=== PATIENT | male | born 1980 | race Asian ===

== ENCOUNTER 2018-02-19 23:36 | Emergency (ER) | payer BC ==
[2018-02-20] MEDS ORDERED: methylPREDNISolone SOD SUCC 125 MG/2 ML VIAL IVP ONE
[2018-02-20] MEDS ORDERED: diphenhydrAMINE 25 MG CAP PO ONE (00:01)
[2018-02-20] MEDS ORDERED: FAMOTIDINE 20 MG/2 ML SDV IVP ONE (00:01)
--- NOTE | 2018-02-20 00:04 | EDPHY ---
H & P Time Seen by Provider: 02/19/18 23:40 HPI/ROS: CC: rash x 24 hours HPI: This 37-year-old male with past medical history of pre-hypertension presents to the emergency department tonight with a pruritic rash that started last night. He states he had an upper respiratory infection consisting of a runny nose for about a week starting last Monday. Then on Monday while he was in the middle of a strenuous workout he developed chills and a fever. He took NyQuil that night and on Monday he took ibuprofen in the morning and the evening and again Monday morning. The rash started Monday on his trunk and then began on his extremities. He also has a few spots on his face and the top of his head. He denies dizziness or lightheadedness, ear pain, sore throat, chest pain, shortness of breath, nausea, vomiting, abdominal pain, or dysuria. He had a few loose stools on Monday but attributes that to food he ate at an restaurant. He has taken ibuprofen in the past without problems. He tried putting coconut oil and camphor on the rash but experienced no relief. He has not been around anyone that has been ill, he has had no recent travel, no new medications, and no new detergents or soaps that he can think of. REVIEW OF SYSTEMS: Constitutional: See HPI. Eyes: No discharge. ENT: No sore throat. Respiratory: No cough, no shortness of breath. Cardiac: No chest pain, no palpitations. Gastrointestinal: No abdominal pain, no vomiting. Genitourinary: No hematuria. Musculoskeletal: No back pain. Skin: See HPI. Neurological: No headache. Past Medical/Surgical History: PMH: "Pre-hypertension" PSH: Denied FH: Daughter has asthma and eczema NKDA Meds: Denied Last 2013 NO PCP Social History: No tobacco products, no ETOH, no marijuana with children Smoking Status: Never smoked Physical Exam: General Appearance: Alert, no distress. Eyes: Pupils equal and round no pallor or injection. No discharge. ENT, Mouth: TMs clear bilaterally. Mucous membranes are moist. No erythema, exudate or petechiae. No intra-oral lesions or swelling. Uvula midline. Respiratory: There are no retractions, lungs are clear to auscultation. Cardiovascular: Regular rate and rhythm. No murmurs, gallops, or rubs. Gastrointestinal: Abdomen is soft and nontender, no masses, bowel sounds normal. Neurological: Awake and alert, sensory and motor exams grossly normal. Skin: Warm and dry. Urticarial rash diffusely on trunk and extremities. Musculoskeletal: Neck is supple nontender. No JVD. Extremities are symmetrical, full range of motion. Psychiatric: Patient is oriented X 3, there is no agitation. DIFFERENTIAL DIAGNOSIS: After history and physical exam differential diagnosis was considered for but not limited to: viral exanthem, urticaria, medication reaction, dermatitis. No evidence for Varicella-Zoster, Herpes Zoster, meningococcemia. Constitutional: Initial Vital Signs Temperature (C) 97.5 F 02/19/18 23:49 Heart Rate 70 02/19/18 23:49 Respiratory Rate 16 02/19/18 23:49 Blood Pressure 142/96 H 02/19/18 23:49 O2 Sat (%) 96 02/19/18 23:49 O2 Delivery Mode Room Air Allergies/Adverse Reactions: No Known Allergies Allergy (Unverified 02/19/18 23:49) Home Medications: Medication Instructions Recorded Cetirizine HCl [Zyrtec] 10 mg PO DAILY 7 Days #7 tablet 02/20/18 Famotidine [Pepcid] 20 mg PO BID 7 Days #14 tablet 02/20/18 predniSONE 20 mg PO BID #14 tablet 02/20/18 Medical Decision Making ED Course/Re-evaluation: The patient was seen and examined. Vital signs were reviewed and was significant for a blood pressure of 147/96 mm of mercury. The patient was counseled that this is stage I hypertension and he should follow up with a primary care provider. The patient understood. The IV was placed and patient was given Solu-Medrol 125 mg IV push and Pepcid 20 mg IV push. He was given 2 tablets of diphenhydramine 25 mg. He may take 1 or 2 of these when he gets home this evening as he drove himself to the ER. He was given a prescription for prednisone 20 mg twice a day for 7 days, Pepcid 20 mg twice a day for 7 days, and Zyrtec 10 mg daily should the Benadryl make him too sleepy to work. He was advised that antihistamines can sometimes cause urinary retention. He should follow up with the primary care provider if his rash persists or consider an house wirer consultation. He should return to the emergency room if symptoms worsen as discussed. - Data Points Medications Given: Discontinued Medications Diphenhydramine HCl (Benadryl) 50 mg PO EDNOW ONE Stop: 02/20/18 00:02 Last Admin: 02/20/18 00:18 Dose: 50 mg Famotidine (Pepcid) 20 mg IVP EDNOW ONE Stop: 02/20/18 00:02 Last Admin: 02/20/18 00:13 Dose: 20 mg Famotidine (Pepcid) 20 mg PO EDNOW ONE Stop: 02/20/18 00:43 Last Admin: 02/20/18 00:47 Dose: 20 mg Methylprednisolone Sodium Succinate (Solu-Medrol) 125 mg IVP EDNOW ONE Stop: 02/20/18 00:01 Last Admin: 02/20/18 00:12 Dose: 125 mg Prednisone (Prednisone) 40 mg PO EDNOW ONE Stop: 02/20/18 00:43 Last Admin: 02/20/18 00:47 Dose: 40 mg Departure - Departure Disposition: Home, Routine, Self-Care Clinical Impression: Urticaria Condition: Good Instructions: Famotidine (By mouth), Prednisone (By mouth), Diphenhydramine ( By mouth), Urticaria (ED), Acute Rash (ED) Additional Instructions: Take the Prednisone and Pepcid as directed. You may either take Benadryl ( diphenhydramine) 25mg every 4 - 6 hours for the itching but if it makes you too drowsy, you may substitue Zyrtec (Cetirizine) 10 mg once a day. You need to follow up with a primary care provider for your blood pressure. Follow up with a primary care provider or house wirer if rash persists. Return to the ER if symptoms worsen as discussed in your discharge instructions. Referrals: Cailin Cortes MD [Medical Doctor] - As per Instructions Prescriptions: Cetirizine HCl [Zyrtec] 10 mg PO DAILY 7 Days #7 tablet Famotidine [Pepcid] 20 mg PO BID 7 Days #14 tablet predniSONE 20 mg PO BID #14 tablet
[2018-02-20] MEDS ORDERED: FAMOTIDINE 20 MG TAB ONE (00:33)
[2018-02-20] MEDS ORDERED: predniSONE 20 MG TAB ONE (00:33)
[2018-02-20 00:41] VITALS: BP 127/97
[2018-02-20] MEDS ORDERED: FAMOTIDINE 20 MG TAB PO ONE (00:42)
[2018-02-20] MEDS ORDERED: predniSONE 20 MG TAB PO ONE (00:42)
== END 2018-02-20 00:51 | disposition home or self-care (01) ==
LOC: CED 23:36
DX: L50.9 Urticaria, unspecified (principal)
CPT/HCPCS: 96374; J2930; J7512